=== PATIENT | female | born 1960 | race African-American/Black ===

== ENCOUNTER 2022-08-31 01:23 | Emergency (ER) | payer MEDICAID, OTHER ==
[~2022-08-31] VITALS: Ht 172.7 cm; Wt 71.6 kg
[2022-08-31 02:15] LABS: BASOPHILS % 0.5 % (0.0-2.0); EOSINOPHILS % 3.1 % (0.0-5.0); HEMATOCRIT. 35.8 % (36.0-48.0); HEMOGLOBIN. 11.8 g/dL (12.0-16.0); LYMPHOCYTES % 27.5 % (20.0-50.0); MEAN CORPUSCULAR VOLUME 81.6 fL (81.0-99.0); MEAN PLATELET VOLUME 7.4 fl (7.4-10.4); MONOCYTES % 7.6 % (2.0-8.0); NEUTROPHILS % 61.3 % (40.0-76.0); PLATELET 311 x1000/uL (130-400); RED BLOOD CELL COUNT 4.39 mill/uL (4.2-5.4); RED CELL DISTRIBUTION WIDTH 14.2 % (11.6-14.6)
[2022-08-31 02:23] LABS: CHLORIDE 106 mEq/L (98-107)
[2022-08-31 02:24] LABS: INR 1.1; PROTHROMBIN TIME 11.6 sec (9.6-11.0)
[2022-08-31 02:30] LABS: ETHANOL BLOOD < 10 mg/dL
[2022-08-31] MEDS ORDERED: ATORVASTATIN CALCIUM 40MG TABLET PO SCH (02:30)
[2022-08-31] MEDS ORDERED: ASPIRIN 325MG EC TABLET PO ONE (02:30)
[2022-08-31] MEDS ORDERED: IOHEXOL-350 100 ML BOTTLE ONE (02:55)
[2022-08-31 06:56] VITALS: BP 130/84
== END 2022-08-31 07:06 | disposition left against medical advice (07) ==
LOC: ER 01:23
DX: I63.9 Cerebral infarction, unspecified (principal); F41.9 Anxiety disorder, unspecified
CPT/HCPCS: 36415; 70450; 70496; 70498; 71045; 80053; 80320; 82962; 85025; 85610; 93005; 99291; Q9967; Z7610; G0480